=== PATIENT | female | born 1970 | race Hispanic/Latino ===

== ENCOUNTER 2017-11-23 08:48 | Outpatient (CLI) | payer BC ==
--- NOTE | 2017-11-23 10:36 | RAD ---
CHEST TWO VIEWS: History: Dyspnea. Comparison: Chest one view, 03-16-15 FINDINGS: The lungs are clear. No pneumothorax or effusion. Cardiac silhouette and mediastinal contours are wit hin normal limits. IMPRESSION: No acute intrathoracic abnormality. POS: [facility]
== END 2017-11-23 08:49 | disposition home or self-care (01) ==
LOC: RAD 08:48
PROVIDERS: ATTEND Internal Medicine Critical Care Medicine
DX: R06.00 Dyspnea, unspecified (principal)
CPT/HCPCS: 71046

== ENCOUNTER 2018-05-19 07:00 | Emergency (ER) | payer BC ==
[2018-05-19] MEDS ORDERED: Ondansetron HCl/PF 4 MG/2 ML Vial ONE (07:20)
[2018-05-19 07:38] LABS: #Eosinphils 0.1 thou/uL (0.0-0.7); #Lymphocytes 1.8 thou/uL (1.20-3.40); #Monocytes 0.3 thou/uL (0.11-0.59); #Neutrophils 3.2 thou/uL (1.40-6.50); %Basophils 0.7 % (0.0-1.0); %Eosinophils 1.6 % (0.0-10.0); %Lymphocytes 32.3 % (21.0-51.0); %Monocytes 5.5 % (0.0-10.0); %Neutrophils 59.9 % (42.0-75.0); Hemoglobin 12.7 g/dL (12.0-16.0); Mean Corpuscular HGB CONC 34.6 g/dL (32.0-36.0); Mean Corpuscular Hemoglobin 30.6 pg (27.0-31.0); Mean Corpuscular Volume 88.5 fL (78.0-98.0); Mean Platelet Volume 7.9 fL (7.4-10.4); Platelet Count 281 thou/uL (130-400); RBC Distribution Width 13.3 % (11.5-14.5); Red Blood Cell (RBC) Count 4.15 mill/uL (4.20-5.40); White Blood Cell (WBC) Count 5.4 thou/uL (4.8-10.8)
--- NOTE | 2018-05-19 07:55 | RAD ---
UPRIGHT PORTABLE CHEST 1 VIEW: HISTORY: A 48-year-old female with a history of headache and vomiting for approximately 5 hours. COMPARISON: 03/16/15. FINDINGS: Heart size is normal. The lungs are clear. Monitor leads overlie the chest. IMPRESSION: No acute intrathoracic disease. POS: [facility]
[2018-05-19 07:57] LABS: ALT (SGPT) 13 U/L (8-55); AST (SGOT) 15 U/L (5-34); Albumin 4.1 g/dL (3.5-5.0); Alkaline Phosphatase 72 U/L (40-150); Anion Gap 13 mmol/L (10-20); BUN (Urea Nitrogen) 11 mg/dL (7.0-18.7); Bilirubin, Total 0.6 mg/dL (0.2-1.2); CK (CPK) 135 U/L (29-168); Calc. Creatinine Clearance 0 mL/min (70-130); Carbon Dioxide 18 mmol/L (22-29); Chloride 110 mmol/L (98-107); Estimated GFR-MDRD 82; Globulin 2.8 g/dL (2.4-3.5); Glucose 118 mg/dL (70-105); Lipase 29 U/L (8-78); Potassium 3.4 mmol/L (3.5-5.1); Protein, Total 6.9 g/dL (6.0-8.3); Sodium 138 mmol/L (136-145)
[2018-05-19 08:02] LABS: CKMB 1.6 ng/mL (0-6.6); Troponin I Less than 0.010 ng/mL (< 0.028)
[2018-05-19] MEDS ORDERED: Ketorolac Tromethamine 30 MG/ML VIAL ONE (08:22)
[2018-05-19] MEDS ORDERED: Metoclopramide HCl 10 MG/2 ML VIAL ONE (08:22)
[2018-05-19] MEDS ORDERED: Acetaminophen 500 MG TAB ONE (08:22)
[2018-05-19] MEDS ORDERED: diphenhydrAMINE 50 MG/ML VIAL ONE (08:22)
--- NOTE | 2018-05-19 09:09 | CT ---
CT BRAIN WITHOUT CONTRAST: Date: 05/19/18 HISTORY: Headache. COMPARISON: None. FINDINGS: No acute territorial infarct or hemorrhage. No midline shift or mass effect. Ventricular size and ext ra-axial CSF spaces are normal. The soft tissues are unremarkable. IMPRESSION: No acute intracranial abnormality. POS: [facility]
[2018-05-19 11:09] LABS: Bilirubin Negative (Negative); Blood, Urine Negative (Negative); Clarity CLEAR (Clear); Glucose, Urine (Dipstick) Negative (Negative); Leukocyte Negative (Negative); Nitrite Negative (Negative); Protein, Urine (Dipstick) Negative (Neg-Trace); Urobilinogen 0.2 mg/dL (0.2-1.0)
[2018-05-19 11:11] LABS: Specific Gravity, Urine 1.003 (1.002-1.036)
== END 2018-05-19 12:16 | disposition home or self-care (01) ==
LOC: ERS 07:00
DX: R51 Headache (principal); I10 Essential (primary) hypertension; Z79.899 Other long term (current) drug therapy
CPT/HCPCS: 70460; 71045; 80053; 81003; 82553; 83690; 84484; 85025; 93005; 96365; 96375; J1200; J1885; J2405; J2765

== ENCOUNTER 2019-03-04 09:30 | Emergency (ER) | payer BC ==
[2019-03-04] MEDS ORDERED: Fluorescein Opthalmic Strip ONE (09:42)
[2019-03-04] MEDS ORDERED: Proparacaine 0.5% Opth 15 ML BOT ONE (09:42)
[2019-03-04] MEDS ORDERED: Iopamidol 370 76% 100 ML VIAL ONE (09:44)
[2019-03-04 10:34] LABS: #Eosinphils 0.1 thou/uL (0.0-0.7); #Lymphocytes 1.8 thou/uL (1.20-3.40); #Monocytes 0.3 thou/uL (0.11-0.59); #Neutrophils 4.1 thou/uL (1.40-6.50); %Basophils 0.7 % (0.0-1.0); %Eosinophils 1.8 % (0.0-10.0); %Lymphocytes 27.9 % (21.0-51.0); %Monocytes 4.7 % (0.0-10.0); %Neutrophils 64.8 % (42.0-75.0); Mean Corpuscular HGB CONC 34.5 g/dL (32.0-36.0); Mean Corpuscular Hemoglobin 30.8 pg (27.0-31.0); Mean Corpuscular Volume 89.1 fL (78.0-98.0); Mean Platelet Volume 7.9 fL (7.4-10.4); Platelet Count 335 thou/uL (130-400); RBC Distribution Width 12.5 % (11.5-14.5); Red Blood Cell (RBC) Count 4.56 mill/uL (4.20-5.40); White Blood Cell (WBC) Count 6.3 thou/uL (4.8-10.8)
[2019-03-04 10:51] LABS: BHCG - Serum Negative (NEGATIVE); Pregs Control Background? CLEAR/WHITE (CLR/WHITE); Pregs Control Bar Appear? YES (CONTROL BAR)
[2019-03-04 10:54] LABS: ALT (SGPT) 15 U/L (8-55); AST (SGOT) 16 U/L (5-34); Albumin 4.5 g/dL (3.5-5.0); Alkaline Phosphatase 81 U/L (40-150); Anion Gap 15 mmol/L (10-20); BUN (Urea Nitrogen) 11 mg/dL (7.0-18.7); Bilirubin, Total 0.6 mg/dL (0.2-1.2); Calc. Creatinine Clearance 0 mL/min (70-130); Calcium 9.9 mg/dL (7.8-10.44); Carbon Dioxide 22 mmol/L (22-29); Chloride 104 mmol/L (98-107); Estimated GFR-MDRD 80; Globulin 3.1 g/dL (2.4-3.5); Glucose 100 mg/dL (70-105); Protein, Total 7.6 g/dL (6.0-8.3); Sodium 137 mmol/L (136-145)
--- NOTE | 2019-03-04 12:07 | CT ---
CT Orbits W Con History: Eye pain Comparison: None. Findings: Pterygoid plates are intact. Floors, orbital roofs, medial orbital zamarripa, lateral orbital w alls are all intact. Normal location of the temporomandibular joints. Nasal bones are intact. No subperiosteal abscess. Gl obes are normal. No periorbital swelling. No abnormal deep tissue enhancement. Visualized portion of the [place] of [place] is normal. Paranasal sinuses are clear. Impression: Normal examination of the orbits.
[2019-03-04] MEDS ORDERED: diphenhydrAMINE 50 MG/ML VIAL ONE (12:30)
[2019-03-04] MEDS ORDERED: Metoclopramide HCl 10 MG/2 ML VIAL ONE (12:30)
== END 2019-03-04 14:35 | disposition home or self-care (01) ==
LOC: ERS 09:30
DX: H11.32 Conjunctival hemorrhage, left eye (principal); R51 Headache; I10 Essential (primary) hypertension; Z79.899 Other long term (current) drug therapy
CPT/HCPCS: 70481; 80053; 84703; 85025; 96365; 96366; 96375; J1200; J2765; Q9967

== ENCOUNTER 2019-03-05 14:51 | Emergency (ER) | payer BC ==
[2019-03-05] MEDS ORDERED: Proparacaine 0.5% Opth 15 ML BOT ONE (16:59)
[2019-03-05] MEDS ORDERED: Naproxen 500 MG TAB ONE ×2 (17:35→17:37)
== END 2019-03-05 17:30 | disposition home or self-care (01) ==
LOC: ERS 14:51
DX: H11.32 Conjunctival hemorrhage, left eye (principal)
CPT/HCPCS: 99283

== ENCOUNTER 2019-08-02 12:02 | Outpatient (CLI) | payer BC ==
--- NOTE | 2019-08-02 13:15 | ULT ---
THYROID ULTRASOUND: INDICATION: Nodule. COMPARISON: No prior imaging comparison is available. FINDINGS: Thyroid gland is homogeneous in echotexture without evidence of discrete nodule. The right thyroid l obe measures 5 cm in length and the left thyroid lobe 4 cm in length. Thyroid isthmus is between 2 a nd 3 mm in thickness. IMPRESSION: No suspicious thyroid nodules. POS: [facility]
--- NOTE | 2019-08-02 13:20 | RAD ---
CHEST 1 VIEW: HISTORY: Chronic fatigue, mid chest pain radiating to back. FINDINGS: Heart size and mediastinum are within normal limits. The lungs are clear of infiltrates. No signifi cant bony findings. IMPRESSION: No active intrathoracic disease. POS: [facility]
--- NOTE | 2019-08-02 13:29 | RAD ---
CERVICAL SPINE SERIES 3 VIEWS: HISTORY: Neck pain. No injury. FINDINGS: Slight reversal to the normal cervical curve. The vertebral bodies are normal in height. Minimal di sk narrowing and osteophytic change seen at C5-6. Facets are normal in alignment. IMPRESSION: Minimal disk narrowing at C5-6 level. POS: [facility]
--- NOTE | 2019-08-02 13:40 | ULT ---
BILATERAL CAROTID ULTRASOUND WITH GRAYSCALE AND DOPPLER COLORFLOW IMAGING: INDICATIONS: Anemia. FINDINGS: There is no significant plaque formation. No sonographic evidence of hemodynamically significant sten osis of either visualized ICA. The imaged vertebral arteries are antegrade bilaterally. IMPRESSION: No hemodynamically significant stenosis of either visualized internal carotid artery. POS: [facility]
--- NOTE | 2019-08-02 14:16 | MMO ---
Bilateral MAMMO Bilat Screen DDI+OBDULIO. CLINICAL HISTORY: Patient is 49 years old and is seen for screening. The patient has no family history of breast cancer. The patient has no personal history of cancer. VIEWS: The views performed were: bilateral craniocaudal with tomosynthesis and bilateral mediolateral oblique with tomosynthesis. FILMS COMPARED: The present examination has been compared to prior imaging studies performed at [facility] on 01/30/2009 and 03/27/2015. This study has been interpreted with the assistance of computer-aided detection. MAMMOGRAM FINDINGS: There are no suspicious masses, suspicious calcifications, or new areas of architectural distortion. IMPRESSION: THERE IS NO MAMMOGRAPHIC EVIDENCE OF MALIGNANCY. A ROUTINE FOLLOW-UP MAMMOGRAM IN 1 YEAR IS RECOMMENDED. THE RESULTS OF THIS EXAM WERE SENT TO THE PATIENT. ACR BI-RADS Category 1 - Negative MAMMOGRAPHY NOTE: 1. A negative mammogram report should not delay a biopsy if a dominant of clinically suspicious mass is present. 2. Approximately 10% to 15% of breast cancers are not detected by mammography. 3. Adenosis and dense breasts may obscure an underlying neoplasm. Reported by: Remberto CHING Electonically Signed: [id number]
--- NOTE | 2019-08-02 15:28 | BD ---
DEXA BONE DENSITY: HISTORY: A 49-year-old female. Screening study. FINDINGS: Lumbar Spine: BMD (g/cm2) L1 0.968 T-Score: -0.2 0.4 L2 1.033 T-Score: 0.0 0.7 L3 1.037 T-Score: -0.4 0.2 L4 1.133 T-Score: 0.7 1.3 L1-L4 1.049 T-Score: 0.0 0.7 Femoral Neck: 0.868 T-Score: 0.2 0.5 Total Femur: 1.086 T-Score: 1.2 1.2 Impression: Lumbar spine: WHO classification is normal. Fracture risk is not increased. Femoral neck: WHO classification is normal. Ten-fracture risk is not reported because all T-score a re at or above -1.0. POS: [facility]
== END 2019-08-02 12:03 | disposition home or self-care (01) ==
LOC: BICMAMMO 12:02
PROVIDERS: ATTEND Family Medicine
DX: Z12.31 Encounter for screening mammogram for malignant neoplasm of breast (principal); M85.9 Disorder of bone density and structure, unspecified; E01.0 Iodine-deficiency related diffuse (endemic) goiter; E04.1 Nontoxic single thyroid nodule; M54.2 Cervicalgia; R53.82 Chronic fatigue, unspecified; R09.89 Other specified symptoms and signs involving the circulatory and respiratory systems; M48.02 Spinal stenosis, cervical region
CPT/HCPCS: 71045; 72040; 76536; 77063; 77067; 77080; 93880

== ENCOUNTER 2019-10-23 09:42 | Outpatient (CLI) | payer BC ==
--- NOTE | 2019-10-23 11:34 | RAD ---
2 VIEWS CHEST: Date: 10/23/2019 COMPARISON: 08/02/2019. HISTORY: Shortness of breath. FINDINGS: No pneumothorax, pleural fluid, focal consolidation, or alveolar edema. Heart and mediastinal contour s are unremarkable. No acute osseous abnormality. IMPRESSION: No acute findings. POS: [facility]
== END 2019-10-23 09:43 | disposition home or self-care (01) ==
LOC: RAD 09:42
PROVIDERS: ATTEND Internal Medicine Critical Care Medicine
DX: R06.00 Dyspnea, unspecified (principal)
CPT/HCPCS: 71046

== ENCOUNTER 2019-12-26 17:06 | Emergency (ER) | payer BC | END 2019-12-26 18:15 | disposition home or self-care (01) | LOC: ERS 17:06 | DX: J06.9 Acute upper respiratory infection, unspecified (principal); I10 Essential (primary) hypertension | CPT/HCPCS: 87804; 99283 ==

== ENCOUNTER 2019-12-27 13:53 | Outpatient (CLI) | payer BC ==
--- NOTE | 2019-12-27 15:43 | RAD ---
EXAM: CHEST ONE VIEW: 12/27/19 HISTORY: Severe persistent asthma, dyspnea. COMPARISON: 10/23/19. FINDINGS: Heart size is normal. The lungs are clear. IMPRESSION: No significant acute intrathoracic disease. Stable from prior study. POS: [facility]
== END 2019-12-27 13:54 | disposition home or self-care (01) ==
LOC: BICRAD 13:53
PROVIDERS: ATTEND Family Medicine
DX: J01.41 Acute recurrent pansinusitis (principal); J45.50 Severe persistent asthma, uncomplicated
CPT/HCPCS: 71045

== ENCOUNTER 2019-12-31 21:05 | Emergency (ER) | payer BC, OTHER ==
[2019-12-31] MEDS ORDERED: Acetaminophen 500 MG TAB ONE (21:43)
[2019-12-31] MEDS ORDERED: Azithromycin 500 MG VIAL ONE (21:43)
[2019-12-31 21:54] LABS: ALT (SGPT) 11 U/L (8-55); AST (SGOT) 19 U/L (5-34); Albumin 4.2 g/dL (3.5-5.0); Alkaline Phosphatase 89 U/L (40-110); Anion Gap 20 mmol/L (10-20); BUN (Urea Nitrogen) 9 mg/dL (7.0-18.7); Bilirubin, Total 0.6 mg/dL (0.2-1.2); Calc. Creatinine Clearance 0 mL/min (70-130); Carbon Dioxide 16 mmol/L (22-29); Chloride 102 mmol/L (98-107); Estimated GFR-MDRD 58; Globulin 3.3 g/dL (2.4-3.5); Glucose 111 mg/dL (70-105); Protein, Total 7.5 g/dL (6.0-8.3); Sodium 135 mmol/L (136-145)
[2019-12-31 21:55] LABS: Hemoglobin 13.5 g/dL (12.0-16.0); Lymphocytes 52 % (21-51); MDiff Complete? YES; Mean Corpuscular HGB CONC 33.5 g/dL (32.0-36.0); Mean Corpuscular Hemoglobin 28.6 pg (27.0-31.0); Mean Corpuscular Volume 85.4 fL (78.0-98.0); Mean Platelet Volume 8.2 fL (7.4-10.4); Monocytes 7 % (0-10); Neutrophil 41 % (42-75); Platelet Count 296 thou/uL (130-400); Platelet Morphology Comment Appears Adequate; RBC Distribution Width 12.9 % (11.5-14.5); Red Blood Cell (RBC) Count 4.72 mill/uL (4.20-5.40); White Blood Cell (WBC) Count 4.5 thou/uL (4.8-10.8)
[2019-12-31] MEDS ORDERED: Hydroxychloroquine Sulfate 200 MG TAB PO SCH (22:00)
[2019-12-31] MEDS ORDERED: Potassium Chloride 20 MEQ TAB ONE (22:16)
--- NOTE | 2019-12-31 22:17 | RAD ---
PORTABLE CHEST: Date: 12-31-2019 Provided Clinical History: Shortness of breath. FINDINGS: Cardiac and mediastinal silhouette is within normal limits. No focal consolidation, pleural fluid, or pneumothorax apparent. IMPRESSION: No evidence for an acute cardiopulmonary process. POS: [facility]
== END 2019-12-31 23:07 | disposition home or self-care (01) ==
LOC: ERS 21:05 → MERGE 21:05 → ERS 23:07
DX: U07.1 COVID-19 (principal); R06.02 Shortness of breath; R05 Cough; E86.0 Dehydration; R00.0 Tachycardia, unspecified; E87.6 Hypokalemia; I10 Essential (primary) hypertension; F41.9 Anxiety disorder, unspecified; F32.9 Major depressive disorder, single episode, unspecified; Z79.899 Other long term (current) drug therapy
CPT/HCPCS: 71045; 80053; 85025; 96365; J0456

== ENCOUNTER 2021-01-07 14:59 | Outpatient (CLI) | payer BC | END 2021-01-07 15:00 | disposition home or self-care (01) | LOC: BICRAD 14:59 | PROVIDERS: ATTEND Family Medicine | DX: Z12.31 Encounter for screening mammogram for malignant neoplasm of breast (principal); R07.9 Chest pain, unspecified; J45.50 Severe persistent asthma, uncomplicated; M54.5 Low back pain; M47.816 Spondylosis without myelopathy or radiculopathy, lumbar region; Z80.3 Family history of malignant neoplasm of breast | CPT/HCPCS: 71045; 72072; 72100; 72170; 77063; 77067 ==

== ENCOUNTER 2021-08-27 15:32 | Outpatient (CLI) | payer BC | END 2021-08-27 15:33 | disposition home or self-care (01) | LOC: BICRAD 15:32 | PROVIDERS: ATTEND Family Medicine | DX: J18.9 Pneumonia, unspecified organism (principal); R05.9 Cough, unspecified | CPT/HCPCS: 71046 ==

== ENCOUNTER 2023-09-14 10:49 | Outpatient (CLI) | payer BC | END 2023-09-14 10:50 | disposition home or self-care (01) | LOC: BICMAMMO 10:49 | PROVIDERS: ATTEND Student in an Organized Health Care Education/Training Program | DX: Z12.31 Encounter for screening mammogram for malignant neoplasm of breast (principal); Z80.3 Family history of malignant neoplasm of breast | CPT/HCPCS: 77063; 77067 ==

== ENCOUNTER 2024-10-05 14:25 | Outpatient (CLI) | payer BC, OTHER | END 2024-10-05 14:26 | disposition home or self-care (01) | LOC: BICMAMMO 14:25 | PROVIDERS: ATTEND Family Medicine | DX: Z12.31 Encounter for screening mammogram for malignant neoplasm of breast (principal); Z80.3 Family history of malignant neoplasm of breast | CPT/HCPCS: 77063; 77067 ==